=== PATIENT | female | born 1955 | race Caucasian/White ===

== ENCOUNTER 2017-01-13 18:25 | Emergency (ER) | payer OTHER ==
[2017-01-13 18:58] LABS: Bilirubin Negative (Negative); Blood, Urine Negative (Negative); Clarity Clear (Clear); Glucose, Urine (Dipstick) 500 mg/dL (Negative); Leukocyte Negative (Negative); Nitrite Negative (Negative); Protein, Urine (Dipstick) Negative (Neg-Trace); Specific Gravity, Urine 1.015 (1.005-1.030); Urobilinogen 0.2 mg/dL (0.2-1.0); pH, Urine 7.5 (5.0-9.0)
[2017-01-13 19:34] LABS: #Basophils 0.1 thou/uL (0.0-0.2); #Eosinphils 0.1 thou/uL (0.0-0.7); #Lymphocytes 1.5 thou/uL (1.20-3.40); #Monocytes 1.3 thou/uL (0.11-0.59); #Neutrophils 14.6 thou/uL (1.40-6.50); %Basophils 0.5 % (0.0-1.0); %Eosinophils 0.5 % (0.0-10.0); %Lymphocytes 8.6 % (21.0-51.0); %Monocytes 7.6 % (0.0-10.0); %Neutrophils 82.8 % (42.0-75.0); Mean Corpuscular HGB CONC 33.1 g/dL (32.0-36.0); Mean Corpuscular Hemoglobin 27.3 pg (27.0-31.0); Mean Corpuscular Volume 82.4 fl (81.0-99.0); Mean Platelet Volume 5.7 fL (7.4-10.4); Platelet Count 305 thou/uL (130-400); RBC Distribution Width 14.1 % (11.5-14.5); Red Blood Cell (RBC) Count 5.14 mill/uL (4.20-5.40); White Blood Cell (WBC) Count 17.6 thou/uL (4.8-10.8)
[2017-01-13] MEDS ORDERED: Fentanyl 100 MCG/2 ML VIAL ONE (19:36)
[2017-01-13] MEDS ORDERED: Piperacillin/Tazobactam 3.375 GM VIAL ONE (19:36)
[2017-01-13] MEDS ORDERED: Sodium Chloride 0.9% 100 ML ONE (19:37)
[2017-01-13 19:49] LABS: ALT (SGPT) 30 U/L (8-55); AST (SGOT) 20 U/L (5-34); Albumin 4.2 g/dL (3.4-4.8); Alkaline Phosphatase 66 U/L (40-150); Anion Gap 17 mmol/L (10-20); BUN (Urea Nitrogen) 12 mg/dL (9.8-20.1); Bilirubin, Total 0.7 mg/dL (0.2-1.2); Calc. Creatinine Clearance 0 mL/min (70-130); Calcium 9.8 mg/dL (7.8-10.44); Carbon Dioxide 23 mmol/L (23-31); Chloride 105 mmol/L (98-107); Estimated GFR-MDRD 82; Globulin 3.5 g/dL (2.4-3.5); Glucose 166 mg/dL (80-115); Lipase 18 U/L (8-78); Potassium 3.9 mmol/L (3.5-5.1); Protein, Total 7.7 g/dL (6.0-8.3); Sodium 141 mmol/L (136-145)
[2017-01-13 19:52] LABS: CKMB 0.8 ng/mL (0-6.6); Troponin I Less than 0.010 ng/mL (< 0.028)
--- NOTE | 2017-01-13 23:25 | RAD ---
PORTABLE CHEST: DATE: 01/13/17. FINDINGS: An AP portable film at 1912 is compared with a 09/14/15 study. The depth of inspiration is very shallow, which crowds the basilar markings, so the lungs are not se en optimally. There is a linear infiltrate in the right lung just above the diaphragm that is proba morgan subsegmental atelectasis. No major infiltrates or effusions are seen otherwise. There is no co ngestion of vessels. The heart is normal in size. IMPRESSION: Presumed strip of atelectasis on the right. Incomplete assessment of the lungs due to shallow breat h. Depending upon the clinical symptoms and labs, further workup may be in order. POS: HOME
== END 2017-01-13 20:25 | disposition short-term general hospital (02) ==
LOC: BURERS 18:25
DX: K81.9 Cholecystitis, unspecified (principal); I73.9 Peripheral vascular disease, unspecified; E78.5 Hyperlipidemia, unspecified; E11.9 Type 2 diabetes mellitus without complications; I10 Essential (primary) hypertension; Z79.84 Long term (current) use of oral hypoglycemic drugs; Z79.02 Long term (current) use of antithrombotics/antiplatelets; Z79.899 Other long term (current) drug therapy
CPT/HCPCS: 36416; 71010; 80053; 81003; 82553; 83605; 83690; 84484; 85025; 93005; 96365; 96375; J2543; J3010; J7050

== ENCOUNTER 2017-01-25 17:45 | Emergency (ER) | payer OTHER ==
[~2017-01-25 17:45] MED LIST: Iopamidol 370 76% 100 ML VIAL ONE; Sodium Chloride 0.9% 100 ML BAG ONE
[2017-01-25 18:10] LABS: #Basophils 0.1 thou/uL (0.0-0.2); #Eosinphils 0.5 thou/uL (0.0-0.7); #Lymphocytes 1.7 thou/uL (1.20-3.40); #Monocytes 0.5 thou/uL (0.11-0.59); #Neutrophils 5.4 thou/uL (1.40-6.50); %Basophils 0.9 % (0.0-1.0); %Eosinophils 6.6 % (0.0-10.0); %Lymphocytes 20.4 % (21.0-51.0); Hemoglobin 13.3 g/dL (12.0-16.0); Mean Corpuscular HGB CONC 33.3 g/dL (32.0-36.0); Mean Corpuscular Hemoglobin 27.3 pg (27.0-31.0); Mean Corpuscular Volume 81.9 fl (81.0-99.0); Mean Platelet Volume 5.4 fL (7.4-10.4); Platelet Count 488 thou/uL (130-400); RBC Distribution Width 14.2 % (11.5-14.5); Red Blood Cell (RBC) Count 4.88 mill/uL (4.20-5.40); White Blood Cell (WBC) Count 8.1 thou/uL (4.8-10.8)
[2017-01-25 18:12] LABS: Bilirubin Negative (Negative); Blood, Urine Negative (Negative); Clarity Clear (Clear); Glucose, Urine (Dipstick) 500 mg/dL (Negative); Leukocyte Negative (Negative); Nitrite Negative (Negative); Protein, Urine (Dipstick) Negative (Neg-Trace); Specific Gravity, Urine 1.024 (1.002-1.036); Urobilinogen 0.2 mg/dL (0.2-1.0); pH, Urine 5.5 (5.0-9.0)
[2017-01-25 18:29] LABS: ALT (SGPT) 39 U/L (8-55); AST (SGOT) 37 U/L (5-34); Alkaline Phosphatase 89 U/L (40-150); Anion Gap 20 mmol/L (10-20); BUN (Urea Nitrogen) 23 mg/dL (9.8-20.1); Bilirubin, Total 0.3 mg/dL (0.2-1.2); Calc. Creatinine Clearance 0 mL/min (70-130); Calcium 9.3 mg/dL (7.8-10.44); Carbon Dioxide 22 mmol/L (23-31); Chloride 100 mmol/L (98-107); Estimated GFR-MDRD 60; Globulin 3.9 g/dL (2.4-3.5); Glucose 243 mg/dL (80-115); Lipase 32 U/L (8-78); Potassium 4.3 mmol/L (3.5-5.1); Protein, Total 7.9 g/dL (6.0-8.3); Sodium 138 mmol/L (136-145)
[2017-01-25] MEDS ORDERED: Piperacillin/Tazobactam 3.375 GM VIAL ONE (19:07)
--- NOTE | 2017-01-25 20:22 | CT ---
CT ABDOMEN AND PELVIC WITH CONTRAST 01/25/[address] of the abdomen and pelvis was done after injection of IV contrast. Oral contrast was withh eld by request. The study is done for evaluation of right flank pain. The patient is about 10 days p ost cholecystectomy. Axial slices were acquired, then coronal reconstructions were done. Pockets of gas are seen in the anterolateral soft tissues of the right flank. While I would presume that this is secondary to the recent cholecystectomy, I am a bit concerned about seeing gas still pr esent this far out. I cannot exclude the possibility of soft tissue infection here, though the amoun t of streaking in the vicinity is small and not excessive. There is no focal fluid collection of con cern. Another additional finding is fluid in the gallbladder fossa at the site of the prior cholecys tectomy. There is one small pocket of gas still there. This still might be conceivably within normal limits ten days out, but I still feel it would be best for the patient's surgeon to recheck the pat ient, examine the images, and determine if anything further need be done. The lung bases are clear. Dense arteriosclerosis is seen in the coronary arteries. There are no tj r infiltrates or effusions in the lungs. The liver, spleen, pancreas, adrenal glands, and kidneys sh owed no acute findings. There is a single small calcification in the left kidney that may actually b e in a scar. The aorta is calcified but shows no aneurysm. I do not see any significant free fluid i n the abdomen. The only fluid collection of question is in the remaining gallbladder fossa as descri bed above. There are no inflammatory changes around bowel. Sigmoid diverticulosis is evident. CT of the pelvis shows no pelvic masses, free fluid, or inflammatory changes. Some degenerative durand ges are seen in the lumbar spine which are worse in the lower levels than the upper. The patient had a previous repair of an umbilical hernia. There is no further gap remaining in the a nterior abdominal wall and certainly no sign of a current significant hernia. IMPRESSION: 1. Gas in the soft tissues of the right flank anterolaterally just a few centimeters above the iliac crest, presumably from a recent cholecystectomy, though I am a little concerned at the amount that still remains ten days post procedure. This plus some residual tissue and one tiny pocket of ga s in the gallbladder fossa leads me to suggest it might be in the patient's best interest for her granda rgeon to re-evaluate her and review these images. 2. No acute abdominal or pelvic process seen otherwise. 3. Prominent coronary arteriosclerosis. Findings discussed with Dr. Murray at 1850 on 01/25/17. POS: HOME
[2017-01-25] MEDS ORDERED: Fentanyl 100 MCG/2 ML VIAL ONE (20:38)
[2017-01-25] MEDS ORDERED: Ondansetron HCl/PF 4 MG/2 ML Vial ONE (20:50)
== END 2017-01-25 21:13 | disposition short-term general hospital (02) ==
LOC: BURERS 17:45
DX: R10.31 Right lower quadrant pain (principal); I73.9 Peripheral vascular disease, unspecified; E78.5 Hyperlipidemia, unspecified; E11.9 Type 2 diabetes mellitus without complications; I11.9 Hypertensive heart disease without heart failure; I25.10 Atherosclerotic heart disease of native coronary artery without angina pectoris; Z79.84 Long term (current) use of oral hypoglycemic drugs; Z79.82 Long term (current) use of aspirin; Z79.899 Other long term (current) drug therapy
CPT/HCPCS: 74177; 80053; 81003; 83690; 85025; 96374; 96375; A4216; J2405; J2543; J3010; J7050

== ENCOUNTER 2018-08-12 17:30 | Emergency (ER) | payer OTHER ==
[2018-08-12] MEDS ORDERED: Guaifenesin DM 100-10/5 ML UDCUP ONE (18:18)
--- NOTE | 2018-08-12 22:16 | RAD ---
CHEST 2 VIEWS: Date: 08/12/18 Comparison is made with an 01/13/17 study. The lateral view definitely shows a streaky basilar infiltrate behind the heart, most likely in the r ight lower lobe. Pneumonia is assumed. The upper lobes are relative clear. The heart size is normal. The trachea bows somewhat as it crosses the aortic arch, but this may be made more prominent by the p atient being turned slightly. The right hilum is slightly prominent, but not that much different than the prior studies. IMPRESSION: Definite retrocardiac infiltrate near the diaphragm suggestive of a basilar pneumonia. Note: I feel it is very important in this patient to follow her to complete resolution with chest x- ray, and if not extremely normal, she may need an elective follow-up CT scan to be sure there is no u nderlying pathology, including re-examing the shaji. I feel she can be followed up first and then a de cision can be made if a CT is needed or not. Case discussed with Dr. Villegas at approximately 1830 hours. The need for follow-up and possible elec tive CT discussed. He noted he would inform the patient of such. CODE CR. POS: HOME
== END 2018-08-12 18:33 | disposition home or self-care (01) ==
LOC: BURERS 17:30
DX: J18.9 Pneumonia, unspecified organism (principal); E11.9 Type 2 diabetes mellitus without complications; E78.5 Hyperlipidemia, unspecified; I10 Essential (primary) hypertension; Z79.899 Other long term (current) drug therapy; Z79.82 Long term (current) use of aspirin
CPT/HCPCS: 71046; J7620

== ENCOUNTER 2023-10-17 20:11 | Emergency (ER) | payer MEDICARE ==
[2023-10-17 20:32] LABS: #Basophils 0.1 thou/uL (0.0-0.2); #Eosinphils 0.2 thou/uL (0.0-0.7); #Lymphocytes 1.1 thou/uL (1.20-3.40); #Monocytes 0.7 thou/uL (0.11-0.59); #Neutrophils 9.5 thou/uL (1.40-6.50); %Basophils 0.5 % (0.0-1.0); %Eosinophils 1.4 % (0.0-10.0); %Lymphocytes 9.4 % (21.0-51.0); %Monocytes 5.8 % (0.0-10.0); %Neutrophils 82.9 % (42.0-75.0); Hematocrit 36.4 % (36.0-47.0); Hemoglobin 11.4 g/dL (12.0-16.0); Mean Corpuscular HGB CONC 31.4 g/dL (32.0-36.0); Mean Corpuscular Hemoglobin 26.4 pg (27.0-31.0); Mean Corpuscular Volume 83.9 fl (78.0-98.0); Mean Platelet Volume 5.4 fL (7.4-10.4); Platelet Count 318 10x3/uL (130-400); RBC Distribution Width 14.3 % (11.5-14.5); Red Blood Cell (RBC) Count 4.34 mill/uL (4.20-5.40); White Blood Cell (WBC) Count 11.5 10x3/uL (4.8-10.8)
[2023-10-17 20:42] LABS: INR-International Normal Ratio 1.1; Prothrombin Time 13.9 sec (12.0-14.7)
[2023-10-17 20:43] LABS: PTT 26.1 sec (22.9-36.1)
[2023-10-17 20:51] LABS: ALT (SGPT) 33 U/L (8-55); AST (SGOT) 23 U/L (5-34); Albumin 4.2 g/dL (3.4-4.8); Alkaline Phosphatase 55 U/L (40-110); Anion Gap 16 mmol/L (10-20); BUN (Urea Nitrogen) 24 mg/dL (9.8-20.1); Bilirubin, Total 0.2 mg/dL (0.2-1.2); Calc. Creatinine Clearance 0 mL/min (70-130); Calcium 9.8 mg/dL (7.8-10.44); Carbon Dioxide 24 mmol/L (23-31); Chloride 105 mmol/L (98-107); Estimated GFR 72; Globulin 2.9 g/dL (2.4-3.5); Glucose 263 mg/dL (80-115); Potassium 3.9 mmol/L (3.5-5.1); Protein, Total 7.1 g/dL (5.8-8.1); Sodium 141 mmol/L (136-145)
[2023-10-17] MEDS ORDERED: Ondansetron PF 4 MG/2 ML Vial ONE (21:25)
[2023-10-17] MEDS ORDERED: Morphine 4 MG/ML VIAL ONE (21:25)
[2023-10-17 21:29] LABS: Bilirubin Negative (Negative); Blood, Urine Trace (Negative); Clarity Clear (Clear); Glucose, Urine (Dipstick) 250 mg/dL (Negative); Ketone, Urine Negative (Negative); Leukocyte Negative (Negative); Nitrite Negative (Negative); Protein, Urine (Dipstick) Negative (Neg-Trace); Specific Gravity, Urine 1.015 (1.005-1.030); Urobilinogen 0.2 mg/dL (Less than 2); pH, Urine 5.5 (5.0-9.0)
[2023-10-17 21:37] LABS: Bacteria/HPF Rare-Few HPF (None Seen); CAUTI Indications for Culture Dysuria,urgency,freq; RBC/HPF None Seen HPF (0-3); Squamous Epithelial 0-3 HPF (0-3); WBC/HPF 0-3 HPF (0-3); Yeast-Budding 3+ HPF (None Seen)
[2023-10-17 21:38] LABS: Urine Culture Reflex No No
== END 2023-10-17 22:13 | disposition home or self-care (01) ==
LOC: BURERS 20:11
DX: S42.201A Unspecified fracture of upper end of right humerus, initial encounter for closed fracture (principal); E11.9 Type 2 diabetes mellitus without complications; I10 Essential (primary) hypertension; E78.5 Hyperlipidemia, unspecified; Z87.891 Personal history of nicotine dependence; Z79.82 Long term (current) use of aspirin; Z79.84 Long term (current) use of oral hypoglycemic drugs; Z79.899 Other long term (current) drug therapy; W18.30XA Fall on same level, unspecified, initial encounter
CPT/HCPCS: 36415; 70450; 71045; 80053; 81001; 85025; 85610; 85730; 96374; 96375; G0390; J2270; J2405